=== PATIENT | female | born 1990 | race Caucasian/White ===

== ENCOUNTER 2018-09-21 09:08 | Inpatient (IN) | payer OTHER ==
[2018-09-21] MEDS ORDERED: OXYTOCIN 30 UNITS/LR 500 ML IV ×4 (09:30→12:00)
[2018-09-21] MEDS ORDERED: CARBOPROST 250 MCG INJ IM ×2 (09:30→12:00)
[2018-09-21] MEDS ORDERED: MISOPROSTOL 200 MCG TAB PR ×2 (09:30→12:00)
[2018-09-21] MEDS ORDERED: METHYLERGONOVINE 0.2 MG INJ IM ×2 (09:30→12:00)
[2018-09-21 10:16] LABS: ADD MAN DIFF? NO
[2018-09-21 10:19] LABS: BASOPHILS % 0.2 % (0.0-2.0); EOSINOPHILS # 0.1 10^3/ul (0.0-0.5); HEMATOCRIT 35.8 % (37.0-47.0); HEMOGLOBIN 11.5 g/dl (12.0-16.0); LYMPHOCYTES # 1.6 10^3/ul (0.8-2.9); MEAN CORPUSCULAR HEMOGLOBIN 24.5 pg (29.0-33.0); MEAN CORPUSCULAR HGB CONC 32.1 g/dl (32.0-37.0); MEAN CORPUSCULAR VOLUME 76.3 fl (82.0-101.0); MEAN PLATELET VOLUME 10.2 fl (7.4-10.4); MONOCYTE # 0.5 10^3/ul (0.3-0.9); MONOCYTES % 5.3 % (0.0-11.0); NEUTROPHIL # 6.5 10^3/ul (1.6-7.5); NEUTROPHILS % 74.7 % (39.0-77.0); PLATELET COUNT 215 10^3/UL (140-415); RED BLOOD COUNT 4.69 10^6/ul (4.20-5.40); RED CELL DISTRIBUTION WIDTH 14.7 % (11.5-14.5)
[2018-09-21 10:19] LABS: WHITE BLOOD COUNT 8.7 10^3/ul (4.8-10.8)
[2018-09-21] MEDS ORDERED: morphine SULFATE/PF (10 MG/10 ML) INJ (10:22)
[2018-09-21 10:38] LABS: INR 0.88; PT RATIO 0.9
[2018-09-21 10:39] LABS: PARTIAL THROMBOPLASTIN TIME 24.8 Sec (23.0-35.0)
[2018-09-21] MEDS ORDERED: PHENYLephrine (100 MCG/ML) 10ML SYG (11:05)
[2018-09-21] MEDS: CEFAZOLIN 2 GM/50 ML (PMX) 50 ML IVPB ×3 (11:08→18:05)
[2018-09-21] MEDS ORDERED: ONDANSETRON 4 MG INJ (11:09)
[2018-09-21] MEDS ORDERED: DEXAMETHASONE 4 MG/ML 1 ML INJ (11:09)
[2018-09-21] MEDS ORDERED: DIPHENHYDRAMINE 50 MG INJ IV (11:30)
[2018-09-21] MEDS ORDERED: ZOLPIDEM 5 MG TAB PO (11:30)
[2018-09-21] MEDS ORDERED: NALOXONE (0.4 MG/ML) INJ IV (11:30)
[2018-09-21] MEDS ORDERED: HYDROmorphONE 0.5 MG/0.5 ML SYG IV ×2 (11:30)
[2018-09-21] MEDS ORDERED: NACL 0.9% 3 ML SYG IV (12:00)
[2018-09-21] MEDS ORDERED: OXYCODONE/ACETAMINOPHEN (5/325) TAB PO (12:00)
[2018-09-21] MEDS ORDERED: IBUPROFEN 600 MG TAB PO (12:00)
[2018-09-21 12:17] LABS: HEPATITIS B SURFACE ANTIGEN NEGATIVE (NEGATIVE)
[2018-09-21] MEDS: KETOROLAC 30 MG INJ IV ×2 (13:11→23:07)
[2018-09-21] MEDS: ONDANSETRON 4 MG INJ IV (14:36)
[2018-09-21] MEDS: OXYTOCIN 30 UNITS/LR 500 ML IV (15:17)
[2018-09-21] MEDS: LANOLIN HPA 1 PKT TOP (15:17)
[2018-09-21] MEDS: LACTATED RINGER'S 1,000 ML IV (16:00)
[2018-09-21 21:03] LABS: RAPID PLASMA REAGIN NONREACTIVE (NR)
[2018-09-22] MEDS: LACTATED RINGER'S 1,000 ML IV ×2 (00:48→09:51)
[2018-09-22] MEDS: CEFAZOLIN 2 GM/50 ML (PMX) 50 ML IVPB ×2 (01:52→09:50)
[2018-09-22 06:51] LABS: ADD MAN DIFF? NO
[2018-09-22 06:53] LABS: WHITE BLOOD COUNT 14.2 10^3/ul (4.8-10.8)
[2018-09-22 06:53] LABS: BASOPHILS % 0.1 % (0.0-2.0); HEMATOCRIT 32.9 % (37.0-47.0); HEMOGLOBIN 10.7 g/dl (12.0-16.0); LYMPHOCYTES # 1.9 10^3/ul (0.8-2.9); LYMPHOCYTES % 13.2 % (15.0-51.0); MEAN CORPUSCULAR HEMOGLOBIN 24.8 pg (29.0-33.0); MEAN CORPUSCULAR HGB CONC 32.5 g/dl (32.0-37.0); MEAN CORPUSCULAR VOLUME 76.2 fl (82.0-101.0); MEAN PLATELET VOLUME 10.5 fl (7.4-10.4); MONOCYTE # 0.9 10^3/ul (0.3-0.9); MONOCYTES % 6.3 % (0.0-11.0); NEUTROPHIL # 11.3 10^3/ul (1.6-7.5); PLATELET COUNT 213 10^3/UL (140-415); RED BLOOD COUNT 4.32 10^6/ul (4.20-5.40); RED CELL DISTRIBUTION WIDTH 14.3 % (11.5-14.5)
[2018-09-22] MEDS: KETOROLAC 30 MG INJ IV (09:50)
[2018-09-22] MEDS: OXYCODONE/ACETAMINOPHEN (5/325) TAB PO (12:08)
[2018-09-22] MEDS: IBUPROFEN 600 MG TAB PO (18:59)
[2018-09-23] MEDS: IBUPROFEN 600 MG TAB PO ×4 (00:03→17:43)
[2018-09-23] MEDS ORDERED: VITAMIN A & D 5 GM OINT PACKET TOP (12:55)
[2018-09-23] MEDS: DOCUSATE SODIUM 100 MG CAP PO ×2 (14:35→21:03)
[2018-09-24] MEDS: IBUPROFEN 600 MG TAB PO ×3 (00:52→12:08)
[2018-09-24] MEDS: DOCUSATE SODIUM 100 MG CAP PO (10:47)
== END 2018-09-24 13:20 | disposition home or self-care (01) | DRG 788 ==
LOC: L-D 09:08 → PP1 14:47
PROVIDERS: Obstetrics & Gynecology
PROC: 10D00Z1 Extraction of Products of Conception, Low, Open Approach (ICD-10-PCS; principal; 2018-09-21 10:30)
PROC: 3E033VJ Introduction of Other Hormone into Peripheral Vein, Percutaneous Approach (ICD-10-PCS; 2018-09-21 10:30)
DX: O32.1XX0 Maternal care for breech presentation, not applicable or unspecified (principal); O32.9XX0 Maternal care for malpresentation of fetus, unspecified, not applicable or unspecified; Z3A.39 39 weeks gestation of pregnancy; Z37.0 Single live birth
CPT/HCPCS: 76815; 85025; 85610; 85730; 86592; 86850; 86900; 86901; 87340; 99464